=== PATIENT | male | born 1990 | race Caucasian/White ===

== ENCOUNTER 2017-01-20 20:41 | Emergency (ER) | payer MEDICAID ==
[~2017-01-20] VITALS: Ht 172.7 cm; Wt 75.0 kg
[2017-01-20 21:17] VITALS: BP 148/88
== END 2017-01-20 22:00 | disposition left against medical advice (07) ==
LOC: ER 20:42
DX: R00.0 Tachycardia, unspecified (principal); Z53.21 Procedure and treatment not carried out due to patient leaving prior to being seen by health care provider

== ENCOUNTER 2017-08-04 16:28 | Emergency (ER) | payer MEDICAID ==
[~2017-08-04] VITALS: Ht 172.7 cm; Wt 73.5 kg
[2017-08-04 17:00] VITALS: BP 125/82
== END 2017-08-04 17:20 | disposition home or self-care (01) ==
LOC: ER 16:28
DX: Z00.00 Encounter for general adult medical examination without abnormal findings (principal); F12.10 Cannabis abuse, uncomplicated; F14.10 Cocaine abuse, uncomplicated; F15.10 Other stimulant abuse, uncomplicated
CPT/HCPCS: 99281

== ENCOUNTER 2018-06-27 08:39 | Emergency (ER) | payer SELFPAY ==
[~2018-06-27] VITALS: Ht 172.7 cm; Wt 88.0 kg
[2018-06-27] MEDS ORDERED: SODIUM CHLORIDE 0.9% 1,000 ML IV ONE (09:04)
[2018-06-27] MEDS ORDERED: ONDANSETRON HCL 4MG/2ML INJ IV STA (09:04)
[2018-06-27] MEDS ORDERED: PANTOPRAZOLE SODIUM 40 MG/VIAL IV STA (09:04)
[2018-06-27] MEDS ORDERED: OCTREOTIDE ACETATE 50 MCG/ML 1ML IV ONE (09:15)
[2018-06-27] MEDS ORDERED: PANTOPRAZOLE 80 MG in SODIUM CHLORIDE 0.9% 80 ML IV ONE (09:15)
[2018-06-27] MEDS ORDERED: OCTREOTIDE 1,000 MCG in SODIUM CHLORIDE 0.9% 100 ML IV ONE ×2 (09:15→10:00)
[2018-06-27 09:53] LABS: HEMATOCRIT. 44.6 % (42.0-52.0); HEMOGLOBIN. 14.9 g/dL (14.0-18.0); MEAN CORPUSCULAR VOLUME 96.1 fL (80.0-94.0); MEAN PLATELET VOLUME 10.3 fl (7.4-10.4); PLATELET 183 x1000/uL (130-400); RED BLOOD CELL COUNT 4.64 mill/uL (4.7-6.1); RED CELL DISTRIBUTION WIDTH 13.1 % (11.6-14.6)
[2018-06-27 09:55] LABS: CHLORIDE 105 mEq/L (98-107)
[2018-06-27 09:59] LABS: INR 1.1; PROTHROMBIN TIME 11.1 sec (9.1-11.1)
[2018-06-27 10:00] LABS: ETHANOL BLOOD 46 mg/dL
[2018-06-27 10:33] LABS: PLATELET ESTIMATE NORMAL
[2018-06-27 12:22] VITALS: BP 127/78
[2018-06-27] MEDS ORDERED: ONDANSETRON HCL 4MG/2ML INJ IV PRN ×2 (12:45→13:30)
[2018-06-27 13:16] LABS: HEPATITIS B SURFACE ANTIGEN NEGATIVE
[2018-06-27 13:45] LABS: HEPATITIS A AB IGM NEGATIVE (NEGATIVE)
[2018-06-27] MEDS ORDERED: PANTOPRAZOLE SODIUM 40 MG/VIAL IV SCH ×2 (17:00)
== END 2018-06-27 14:00 | disposition left against medical advice (07) ==
LOC: ER 08:39 → EDBEDREQ 12:39 → CANRESERV 13:04 → ENRESERV 13:04 → ER 13:27 → CANBEDREQ 16:28
DX: K92.2 Gastrointestinal hemorrhage, unspecified (principal); F10.229 Alcohol dependence with intoxication, unspecified; R00.0 Tachycardia, unspecified; Y90.2 Blood alcohol level of 40-59 mg/100 ml; K76.0 Fatty (change of) liver, not elsewhere classified; F12.10 Cannabis abuse, uncomplicated; Z98.890 Other specified postprocedural states
CPT/HCPCS: 36415; 74176; 80053; 80307; 83690; 85025; 85610; 86850; 86900; 86901; 87186; 96361; 96365; 96366; 96368; 96375; 99284; C9113; J2354; J2405; J7030; J7050; 86705; 86709; 86803; 87340

== ENCOUNTER 2018-08-16 08:11 | Emergency (ER) | payer BC ==
[~2018-08-16] VITALS: Ht 175.3 cm; Wt 91.0 kg
[2018-08-16] MEDS ORDERED: SODIUM CHLORIDE 0.9% 1,000 ML IV ONE (08:33)
[2018-08-16] MEDS ORDERED: ONDANSETRON HCL 4MG/2ML INJ IV STA (08:33)
[2018-08-16] MEDS ORDERED: PANTOPRAZOLE SODIUM 40 MG/VIAL IV ONE (08:45)
[2018-08-16] MEDS ORDERED: ONDANSETRON HCL 4MG/2ML INJ IV ONE (08:45)
[2018-08-16] MEDS ORDERED: LORAZEPAM 2MG/ML CPJ IV ONE (08:45)
[2018-08-16 08:49] LABS: BASOPHILS % 1.3 % (0.0-2.0); EOSINOPHILS % 0.3 % (0.0-5.0); HEMATOCRIT. 52.3 % (42.0-52.0); HEMOGLOBIN. 18.1 g/dL (14.0-18.0); LYMPHOCYTES % 23.4 % (20.0-50.0); MEAN CORPUSCULAR HEMOGLOBIN 32.7 pg (28.0-32.0); MEAN CORPUSCULAR VOLUME 94.6 fL (80.0-94.0); MEAN PLATELET VOLUME 9.4 fl (7.4-10.4); MONOCYTES % 5.8 % (2.0-8.0); NEUTROPHILS % 69.2 % (40.0-76.0); PLATELET 251 x1000/uL (130-400); RED BLOOD CELL COUNT 5.53 mill/uL (4.7-6.1); RED CELL DISTRIBUTION WIDTH 13.5 % (11.6-14.6)
[2018-08-16 08:52] LABS: CHLORIDE 105 mEq/L (98-107)
[2018-08-16 08:53] LABS: INR 1.1; PROTHROMBIN TIME 11.2 sec (9.1-11.1)
[2018-08-16] MEDS ORDERED: METOCLOPRAMIDE HCL 10MG/2ML VIAL IV ONE (10:00)
[2018-08-16 10:58] LABS: CLARITY URINE CLEAR (CLEAR); COLOR URINE YELLOW (YELLOW); KETONES URINE TRACE (NEGATIVE); LEUKOCYTE ESTERASE URINE NEGATIVE (NEGATIVE); NITRITE URINE NEGATIVE (NEGATIVE); OCCULT BLOOD URINE NEGATIVE (NEGATIVE); PROTEIN URINE 1+ (NEGATIVE); SPECIFIC GRAVITY URINE 1.019 (1.005-1.030); UROBILINOGEN URINE 0.2 E.U./dL (0.2-1.0)
[2018-08-16 11:17] LABS: *AMPHETAMINES SCREEN URINE NEGATIVE (NEGATIVE); *BARBITURATES SCREEN URINE NEGATIVE (NEGATIVE); *BENZODIAZEPINES SCREEN URINE NEGATIVE (NEGATIVE); *COCAINE SCREEN URINE NEGATIVE (NEGATIVE)
[2018-08-16 11:18] LABS: CANNABINOID URINE SCREEN PRESUMTIVE POSITIVE (NEGATIVE); METHADONE URINE SCREEN NEGATIVE (NEGATIVE); OPIATES URINE SCREEN NEGATIVE (NEGATIVE); PHENCYCLIDINE URINE SCREEN NEGATIVE (NEGATIVE)
[2018-08-16 11:47] VITALS: BP 120/78
== END 2018-08-16 12:09 | disposition home or self-care (01) ==
LOC: ER 08:11
DX: R11.2 Nausea with vomiting, unspecified (principal); F12.10 Cannabis abuse, uncomplicated; F15.10 Other stimulant abuse, uncomplicated; F10.20 Alcohol dependence, uncomplicated; Y90.4 Blood alcohol level of 80-99 mg/100 ml; Z94.1 Heart transplant status
CPT/HCPCS: 36415; 71045; 80053; 80305; 80320; 81003; 83690; 85025; 85610; 96361; 96374; 96375; 96376; 99284; C9113; J2060; J2405; J2765; J7030; G0480

== ENCOUNTER 2020-01-13 11:14 | Emergency (ER) | payer BC, MEDICAID ==
[~2020-01-13] VITALS: Ht 172.7 cm; Wt 90.7 kg
[2020-01-13 12:15] LABS: BASOPHILS % 1.2 % (0.0-2.0); EOSINOPHILS % 0.1 % (0.0-5.0); HEMATOCRIT. 50.2 % (42.0-52.0); HEMOGLOBIN. 17.2 g/dL (14.0-18.0); LYMPHOCYTES % 12.8 % (20.0-50.0); MEAN CORPUSCULAR HEMOGLOBIN 33.2 pg (28.0-32.0); MEAN CORPUSCULAR VOLUME 96.8 fL (80.0-94.0); MEAN PLATELET VOLUME 9.5 fl (7.4-10.4); MONOCYTES % 5.7 % (2.0-8.0); NEUTROPHILS % 80.2 % (40.0-76.0); PLATELET 234 x1000/uL (130-400); RED BLOOD CELL COUNT 5.18 mill/uL (4.7-6.1); RED CELL DISTRIBUTION WIDTH 13.6 % (11.6-14.6)
[2020-01-13 12:20] LABS: CHLORIDE 104 mEq/L (98-107)
[2020-01-13 12:28] LABS: INR 1.1; PROTHROMBIN TIME 11.2 sec (9.6-11.0)
[2020-01-13] MEDS ORDERED: ONDANSETRON HCL 4MG/2ML INJ IV ONE (14:00)
[2020-01-13 14:35] VITALS: BP 141/84
== END 2020-01-13 14:45 | disposition home or self-care (01) ==
LOC: ER 11:14
DX: R11.2 Nausea with vomiting, unspecified (principal); F15.10 Other stimulant abuse, uncomplicated; F12.10 Cannabis abuse, uncomplicated; F17.290 Nicotine dependence, other tobacco product, uncomplicated; Z98.890 Other specified postprocedural states
CPT/HCPCS: 36415; 71045; 80053; 85025; 85610; 86850; 86900; 86901; 93005; 96374; 99285; 99406; J2405

== ENCOUNTER 2020-03-01 12:14 | Emergency (ER) | payer MEDICAID ==
[~2020-03-01] VITALS: Ht 172.7 cm; Wt 91.0 kg
[2020-03-01 12:18] VITALS: BP 146/85
== END 2020-03-01 12:52 | disposition home or self-care (01) ==
LOC: ER 12:14
DX: M54.6 Pain in thoracic spine (principal); F15.10 Other stimulant abuse, uncomplicated; F12.90 Cannabis use, unspecified, uncomplicated
CPT/HCPCS: 99282

== ENCOUNTER 2020-06-02 17:18 | Emergency (ER) | payer MEDICAID ==
[~2020-06-02] VITALS: Ht 172.7 cm; Wt 82.0 kg
[2020-06-02] MEDS ORDERED: KETOROLAC 60MG/2ML VIAL IM ONE (19:30)
[2020-06-02 20:13] VITALS: BP 135/78
== END 2020-06-02 21:37 | disposition home or self-care (01) ==
LOC: ER 17:18
DX: S42.022A Displaced fracture of shaft of left clavicle, initial encounter for closed fracture (principal); Y04.2XXA Assault by strike against or bumped into by another person, initial encounter; Y93.89 Activity, other specified; Y92.89 Other specified places as the place of occurrence of the external cause; F10.20 Alcohol dependence, uncomplicated; Y90.9 Presence of alcohol in blood, level not specified; F15.10 Other stimulant abuse, uncomplicated; R03.0 Elevated blood-pressure reading, without diagnosis of hypertension; F12.90 Cannabis use, unspecified, uncomplicated
CPT/HCPCS: 29105; 73030; 96372; 99283; J1885; A4565

== ENCOUNTER 2020-12-19 15:04 | Emergency (ER) | payer BC, OTHER ==
[~2020-12-19] VITALS: Ht 167.6 cm; Wt 80.0 kg
[2020-12-19] MEDS ORDERED: ONDANSETRON HCL 4MG/2ML INJ IV STA (17:42)
[2020-12-19] MEDS ORDERED: MORPHINE SULFATE 4 MG/ML CPJ (NOT FOR IM USE) IV STA (17:42)
[2020-12-19] MEDS ORDERED: SODIUM CHLORIDE 0.9% 1,000 ML IV ONE (17:45)
[2020-12-19] MEDS ORDERED: ONDANSETRON HCL 4MG/2ML INJ IV ONE (18:30)
[2020-12-19 19:44] LABS: HEMOGLOBIN. 17.9 g/dL (14.0-18.0); MEAN CORPUSCULAR HEMOGLOBIN 33.1 pg (28.0-32.0); MEAN CORPUSCULAR VOLUME 92.4 fL (80.0-94.0); MEAN PLATELET VOLUME 9.7 fl (7.4-10.4); PLATELET 227 x1000/uL (130-400); RED BLOOD CELL COUNT 5.41 mill/uL (4.7-6.1); RED CELL DISTRIBUTION WIDTH 13.8 % (11.6-14.6)
[2020-12-19] MEDS ORDERED: LORAZEPAM 2MG/ML CPJ IV ONE (19:45)
[2020-12-19 19:51] LABS: CHLORIDE 105 mEq/L (98-107)
[2020-12-19 19:53] LABS: INR 1.1; PROTHROMBIN TIME 11.7 sec (9.6-11.0)
[2020-12-19 19:56] LABS: ETHANOL BLOOD < 10 mg/dL
[2020-12-19 20:59] LABS: PLATELET ESTIMATE NORMAL
[2020-12-19] MEDS ORDERED: IOHEXOL-300 100 ML BOTTLE ONE (23:28)
[2020-12-19 23:43] LABS: CLARITY URINE CLEAR (CLEAR); COLOR URINE YELLOW (YELLOW); KETONES URINE 1+ (NEGATIVE); LEUKOCYTE ESTERASE URINE NEGATIVE (NEGATIVE); NITRITE URINE NEGATIVE (NEGATIVE); OCCULT BLOOD URINE NEGATIVE (NEGATIVE); PH URINE 6.5 (4.5-8.0); PROTEIN URINE TRACE (NEGATIVE); SPECIFIC GRAVITY URINE 1.073 (1.005-1.030)
[2020-12-20 00:09] LABS: *AMPHETAMINES SCREEN URINE NEGATIVE (NEGATIVE); *COCAINE SCREEN URINE NEGATIVE (NEGATIVE); CANNABINOID URINE SCREEN PRESUMTIVE POSITIVE (NEGATIVE); METHADONE URINE SCREEN NEGATIVE (NEGATIVE); OPIATES URINE SCREEN PRESUMTIVE POSITIVE (NEGATIVE); PHENCYCLIDINE URINE SCREEN NEGATIVE (NEGATIVE)
[2020-12-20 00:10] LABS: *BARBITURATES SCREEN URINE NEGATIVE (NEGATIVE); *BENZODIAZEPINES SCREEN URINE NEGATIVE (NEGATIVE)
[2020-12-20 05:00] VITALS: BP 127/81
== END 2020-12-20 05:28 | disposition short-term general hospital (02) ==
LOC: ER 15:04
DX: R11.10 Vomiting, unspecified (principal); R10.13 Epigastric pain; R19.7 Diarrhea, unspecified; R00.0 Tachycardia, unspecified; I45.10 Unspecified right bundle-branch block; F10.20 Alcohol dependence, uncomplicated; Y90.0 Blood alcohol level of less than 20 mg/100 ml; F15.10 Other stimulant abuse, uncomplicated; F12.90 Cannabis use, unspecified, uncomplicated
CPT/HCPCS: 36415; 71045; 74177; 80053; 80305; 80320; 81003; 83605; 83690; 84484; 85025; 85610; 93005; 96361; 96374; 96375; 96376; 99285; J2060; J2270; J2405; J7030; Q9967; G0480

== ENCOUNTER 2021-01-11 08:52 | Emergency (ER) | payer BC, OTHER ==
[~2021-01-11] VITALS: Ht 172.7 cm; Wt 95.0 kg
[2021-01-11] MEDS ORDERED: SODIUM CHLORIDE 0.9% 1,000 ML IV ONE (09:00)
[2021-01-11 09:59] LABS: HEMATOCRIT. 46.2 % (42.0-52.0); HEMOGLOBIN. 15.7 g/dL (14.0-18.0); MEAN CORPUSCULAR HEMOGLOBIN 32.7 pg (28.0-32.0); MEAN CORPUSCULAR VOLUME 96.2 fL (80.0-94.0); MEAN PLATELET VOLUME 9.4 fl (7.4-10.4); PLATELET 197 x1000/uL (130-400); RED CELL DISTRIBUTION WIDTH 14.2 % (11.6-14.6)
[2021-01-11 10:08] LABS: CHLORIDE 106 mEq/L (98-107)
[2021-01-11 10:14] LABS: ETHANOL BLOOD 88 mg/dL
[2021-01-11 12:23] LABS: *AMPHETAMINES SCREEN URINE NEGATIVE (NEGATIVE); *BENZODIAZEPINES SCREEN URINE NEGATIVE (NEGATIVE); *COCAINE SCREEN URINE NEGATIVE (NEGATIVE); METHADONE URINE SCREEN NEGATIVE (NEGATIVE); OPIATES URINE SCREEN NEGATIVE (NEGATIVE)
[2021-01-11 12:24] LABS: *BARBITURATES SCREEN URINE NEGATIVE (NEGATIVE); CANNABINOID URINE SCREEN PRESUMTIVE POSITIVE (NEGATIVE); PHENCYCLIDINE URINE SCREEN NEGATIVE (NEGATIVE)
[2021-01-11] MEDS ORDERED: POTASSIUM CHLORIDE 20MEQ TABLET SR PO ONE (12:45)
[2021-01-11 14:09] LABS: PLATELET ESTIMATE NORMAL
[2021-01-11 14:15] VITALS: BP 145/84
== END 2021-01-11 15:18 | disposition home or self-care (01) ==
LOC: ER 08:52
DX: R00.2 Palpitations (principal); F10.129 Alcohol abuse with intoxication, unspecified; E87.6 Hypokalemia; F19.10 Other psychoactive substance abuse, uncomplicated; F17.200 Nicotine dependence, unspecified, uncomplicated; F12.10 Cannabis abuse, uncomplicated; Z98.890 Other specified postprocedural states; Y90.4 Blood alcohol level of 80-99 mg/100 ml
CPT/HCPCS: 36415; 71045; 80053; 80305; 80320; 83880; 84443; 84484; 85025; 93005; 96360; 96361; 99285; J7030; Z7610; G0480

== ENCOUNTER 2021-03-14 08:00 | Emergency (ER) | payer OTHER ==
[~2021-03-14] VITALS: Ht 172.7 cm; Wt 85.0 kg
[2021-03-14] MEDS ORDERED: KETOROLAC 30MG/ML VIAL IV STA (08:19)
[2021-03-14] MEDS ORDERED: ONDANSETRON HCL 4MG/2ML INJ IV ONE (08:30)
[2021-03-14] MEDS ORDERED: SODIUM CHLORIDE 0.9% 1,000 ML IV ONE (08:30)
[2021-03-14 08:59] LABS: CHLORIDE 104 mEq/L (98-107)
[2021-03-14 09:03] LABS: ETHANOL BLOOD 74 mg/dL
[2021-03-14 09:10] LABS: BASOPHILS % 0.9 % (0.0-2.0); EOSINOPHILS % 0.5 % (0.0-5.0); HEMATOCRIT. 48.5 % (42.0-52.0); HEMOGLOBIN. 16.8 g/dL (14.0-18.0); MEAN CORPUSCULAR HEMOGLOBIN 33.4 pg (28.0-32.0); MEAN CORPUSCULAR VOLUME 96.4 fL (80.0-94.0); MEAN PLATELET VOLUME 9.1 fl (7.4-10.4); MONOCYTES % 6.3 % (2.0-8.0); NEUTROPHILS % 84.3 % (40.0-76.0); PLATELET 186 x1000/uL (130-400); RED BLOOD CELL COUNT 5.03 mill/uL (4.7-6.1); RED CELL DISTRIBUTION WIDTH 14.2 % (11.6-14.6)
[2021-03-14 10:40] LABS: *AMPHETAMINES SCREEN URINE NEGATIVE (NEGATIVE); *BARBITURATES SCREEN URINE NEGATIVE (NEGATIVE); *BENZODIAZEPINES SCREEN URINE NEGATIVE (NEGATIVE)
[2021-03-14 10:41] LABS: *COCAINE SCREEN URINE NEGATIVE (NEGATIVE); CANNABINOID URINE SCREEN PRESUMTIVE POSITIVE (NEGATIVE); METHADONE URINE SCREEN NEGATIVE (NEGATIVE); OPIATES URINE SCREEN NEGATIVE (NEGATIVE); PHENCYCLIDINE URINE SCREEN NEGATIVE (NEGATIVE)
[2021-03-14] MEDS ORDERED: OMEP20CA14 MT (10:48)
[2021-03-14 11:20] VITALS: BP 147/92
== END 2021-03-14 11:22 | disposition home or self-care (01) ==
LOC: ER 08:00
DX: T51.0X1A Toxic effect of ethanol, accidental (unintentional), initial encounter (principal); R07.89 Other chest pain; F10.229 Alcohol dependence with intoxication, unspecified; Y90.3 Blood alcohol level of 60-79 mg/100 ml; Z71.41 Alcohol abuse counseling and surveillance of alcoholic; I45.2 Bifascicular block; F12.90 Cannabis use, unspecified, uncomplicated; F15.10 Other stimulant abuse, uncomplicated; K21.9 Gastro-esophageal reflux disease without esophagitis; Y92.89 Other specified places as the place of occurrence of the external cause
CPT/HCPCS: 36415; 71045; 80053; 80305; 80320; 83880; 84484; 85025; 93005; 96374; 96375; 99285; J1885; J2405; J7030; G0480

== ENCOUNTER 2021-08-19 10:37 | Emergency (ER) | payer OTHER ==
[~2021-08-19] VITALS: Ht 172.7 cm; Wt 90.0 kg
[~2021-08-19 10:37] MED LIST: OMEP20CA14 MT
[2021-08-19 12:19] LABS: HEMATOCRIT. 49.5 % (42.0-52.0); HEMOGLOBIN. 17.4 g/dL (14.0-18.0); MEAN CORPUSCULAR HEMOGLOBIN 32.8 pg (28.0-32.0); MEAN CORPUSCULAR VOLUME 93.1 fL (80.0-94.0); PLATELET 230 x1000/uL (130-400); RED BLOOD CELL COUNT 5.32 mill/uL (4.7-6.1); RED CELL DISTRIBUTION WIDTH 13.5 % (11.6-14.6)
[2021-08-19 12:29] LABS: CHLORIDE 101 mEq/L (98-107)
[2021-08-19 12:33] LABS: ETHANOL BLOOD < 10 mg/dL
[2021-08-19 12:45] LABS: PLATELET ESTIMATE NORMAL
[2021-08-19] MEDS ORDERED: SODIUM CHLORIDE 0.9% 1,000 ML IV ONE (13:45)
[2021-08-19] MEDS ORDERED: ONDANSETRON HCL 4MG/2ML INJ IV ONE (13:45)
[2021-08-19] MEDS ORDERED: KETOROLAC 15MG/ML VIAL IV ONE (13:45)
[2021-08-19 16:11] VITALS: BP 141/97
[2021-08-19] MEDS ORDERED: IOHEXOL-300 100 ML BOTTLE ONE (16:32)
== END 2021-08-19 16:38 | disposition home or self-care (01) ==
LOC: ER 10:37
DX: R10.12 Left upper quadrant pain (principal); F15.10 Other stimulant abuse, uncomplicated; Z98.890 Other specified postprocedural states
CPT/HCPCS: 36415; 71045; 74177; 80053; 80320; 82962; 83690; 83880; 84484; 85025; 93005; 96361; 96374; 96375; 99285; J1885; J2405; J7030; Q9967; G0480

== ENCOUNTER 2022-08-25 12:07 | Emergency (ER) | payer OTHER ==
[~2022-08-25] VITALS: Ht 172.7 cm; Wt 82.0 kg
[2022-08-25] MEDS ORDERED: KETOROLAC 60MG/2ML VIAL IM ONE (15:00)
[2022-08-25] MEDS ORDERED: ONDANSETRON 4MG ODT PO STA (15:11)
[2022-08-25 15:14] LABS: CLARITY URINE CLEAR (CLEAR); COLOR URINE YELLOW (YELLOW); KETONES URINE TRACE (NEGATIVE); LEUKOCYTE ESTERASE URINE NEGATIVE (NEGATIVE); NITRITE URINE NEGATIVE (NEGATIVE); OCCULT BLOOD URINE TRACE (NEGATIVE); PH URINE 6.5 (4.5-8.0); PROTEIN URINE 2+ (NEGATIVE); SPECIFIC GRAVITY URINE 1.018 (1.005-1.030); UROBILINOGEN URINE 0.2 E.U./dL (0.2-1.0)
[2022-08-25 16:03] LABS: BASOPHILS % 0.7 % (0.0-2.0); EOSINOPHILS % 0.1 % (0.0-5.0); HEMATOCRIT. 49.4 % (42.0-52.0); HEMOGLOBIN. 16.8 g/dL (14.0-18.0); LYMPHOCYTES % 8.3 % (20.0-50.0); MEAN CORPUSCULAR HEMOGLOBIN 32.7 pg (28.0-32.0); MEAN CORPUSCULAR VOLUME 95.7 fL (80.0-94.0); MEAN PLATELET VOLUME 9.5 fl (7.4-10.4); MONOCYTES % 7.1 % (2.0-8.0); NEUTROPHILS % 83.8 % (40.0-76.0); PLATELET 153 x1000/uL (130-400); RED BLOOD CELL COUNT 5.16 mill/uL (4.7-6.1); RED CELL DISTRIBUTION WIDTH 14.1 % (11.6-14.6)
[2022-08-25 16:19] LABS: CHLORIDE 101 mEq/L (98-107)
[2022-08-25 16:27] LABS: ETHANOL BLOOD 86 mg/dL
[2022-08-25 16:36] VITALS: BP 137/94
[2022-08-25] MEDS ORDERED: HALOPERIDOL LACTATE 5MG/ML VIAL IM ONE (16:45)
[2022-08-25] MEDS ORDERED: ONDA4TAB50 MT (17:18)
[2022-08-25] MEDS ORDERED: IBUP-2028 MT (17:18)
[2022-08-25] MEDS ORDERED: LIDO1ADH62 TP (17:18)
== END 2022-08-25 17:56 | disposition home or self-care (01) ==
LOC: ER 12:07
DX: R10.9 Unspecified abdominal pain (principal); R11.2 Nausea with vomiting, unspecified
CPT/HCPCS: 36415; 71101; 80053; 80320; 81003; 83690; 85025; 96372; 99284; J1630; J1885; Q0162; Z7610; G0480

== ENCOUNTER 2023-01-15 06:42 | Emergency (ER) | payer OTHER ==
[~2023-01-15] VITALS: Ht 172.7 cm; Wt 73.0 kg
[~2023-01-15 06:42] MED LIST changes: +IBUP-2028 MT; +LIDO1ADH62 TP; +ONDA4TAB50 MT
[2023-01-15 06:48] VITALS: BP 127/81; PULSE 76; RESP 18; TEMP 98.9; O2SAT 97
[2023-01-15 07:50] LABS: BASOPHILS % 0.8 % (0.0-2.0); EOSINOPHILS % 0.5 % (0.0-5.0); HEMATOCRIT. 49.1 % (42.0-52.0); HEMOGLOBIN. 16.7 g/dL (14.0-18.0); LYMPHOCYTES % 7.9 % (20.0-50.0); MEAN CORPUSCULAR HEMOGLOBIN 32.2 pg (28.0-32.0); MEAN CORPUSCULAR HGB CONC 33.9 g/dL (31.0-37.0); MEAN CORPUSCULAR VOLUME 94.9 fL (80.0-94.0); MEAN PLATELET VOLUME 9.4 fl (7.4-10.4); MONOCYTES % 2.9 % (2.0-8.0); NEUTROPHILS % 87.9 % (40.0-76.0); PLATELET 220 x1000/uL (130-400); RED BLOOD CELL COUNT 5.18 mill/uL (4.7-6.1); RED CELL DISTRIBUTION WIDTH 13.8 % (11.6-14.6); WHITE BLOOD COUNT 12.7 x1000/uL (4.5-11.0)
[2023-01-15 07:58] LABS: CHLORIDE 111 mEq/L (98-107); INDEX HEMOLYSI 1 (1-3); INDEX ICTERIC 1 (1-4); INDEX LIPEMIC 1 (1-3); POTASSIUM 3.6 mEq/L (3.5-5.1); SODIUM 138 mEq/L (136-145)
[2023-01-15 08:06] LABS: ALANINE AMINOTRANSFERASE 61 IU/L (13-61); ALBUMIN 4.2 g/dL (3.4-5.0); ASPARTATE AMINOTRANSFERASE 153 IU/L (15-37); BILIRUBIN TOTAL 0.5 mg/dL (0.1-1.0); CALCIUM 8.9 mg/dL (8.5-10.1); CARBON DIOXIDE 23 mEq/L (21-32); CREATININE 0.6 mg/dL (0.6-1.3); GLUCOSE 91 mg/dL (70-105); UREA NITROGEN BLOOD 6 mg/dL (7-21)
[2023-01-15 08:30] LABS: PROTHROMBIN TIME 11.2 sec (9.6-11.0)
[2023-01-15] MEDS ORDERED: TOPUD PO (10:03)
[2023-01-15] MEDS ORDERED: ONDA4TAB50 PO (10:03)
== END 2023-01-15 11:28 | disposition home or self-care (01) ==
LOC: ER 06:48
DX: R10.9 Unspecified abdominal pain (principal); F15.10 Other stimulant abuse, uncomplicated; F10.229 Alcohol dependence with intoxication, unspecified; I20.9 Angina pectoris, unspecified; Y90.0 Blood alcohol level of less than 20 mg/100 ml
CPT/HCPCS: 36415; 74176; 80053; 85025; 93005; 99284

== ENCOUNTER 2023-08-03 02:01 | Emergency (ER) | payer MEDICAID, OTHER ==
[~2023-08-03] VITALS: Ht 172.7 cm; Wt 84.5 kg
[~2023-08-03 02:01] MED LIST changes: +ONDA4TAB50 PO; +TOPUD PO
[2023-08-03 02:28] VITALS: BP 133/85; PULSE 108; RESP 24; TEMP 98.3; O2SAT 98
[2023-08-03 03:02] LABS: CLARITY URINE CLEAR (CLEAR); COLOR URINE YELLOW (YELLOW); GLUCOSE URINE NEGATIVE (NEGATIVE); KETONES URINE TRACE (NEGATIVE); LEUKOCYTE ESTERASE URINE NEGATIVE (NEGATIVE); NITRITE URINE NEGATIVE (NEGATIVE); OCCULT BLOOD URINE TRACE (NEGATIVE); PH URINE 5.5 (4.5-8.0); PROTEIN URINE TRACE (NEGATIVE); UROBILINOGEN URINE 0.2 E.U./dL (0.2-1.0)
[2023-08-03 04:55] LABS: RBC URINE 0-2 /hpf (0-2); WBC URINE 0-2 /hpf (0-2)
[2023-08-03 04:56] LABS: SQUAMOUS EPITHELIAL CELL URINE FEW /lpf (RARE/1+)
[2023-08-03 05:00] LABS: BACTERIA URINE NONE SEEN
== END 2023-08-03 08:29 | disposition left against medical advice (07) ==
LOC: ER 02:28
DX: R07.89 Other chest pain (principal); R11.10 Vomiting, unspecified; Z53.21 Procedure and treatment not carried out due to patient leaving prior to being seen by health care provider
CPT/HCPCS: 81003; 93005; 99281

== ENCOUNTER 2023-09-01 16:01 | Emergency (ER) | payer MEDICAID ==
[~2023-09-01] VITALS: Ht 172.7 cm; Wt 82.0 kg
[2023-09-01 16:03] VITALS: O2SAT 96
[2023-09-01] MEDS ORDERED: IBUP-2028 MT (16:26)
[2023-09-01] MEDS ORDERED: BO1 TP (16:26)
[2023-09-01] MEDS ORDERED: LIDO700A15 TP (17:02)
[2023-09-01 17:19] VITALS: BP 118/69; PULSE 67; RESP 18; TEMP 98.2
== END 2023-09-01 17:19 | disposition home or self-care (01) ==
LOC: ER 16:01
DX: S00.83XA Contusion of other part of head, initial encounter (principal); Z79.899 Other long term (current) drug therapy; W18.30XA Fall on same level, unspecified, initial encounter; Y93.89 Activity, other specified; Y92.89 Other specified places as the place of occurrence of the external cause; Y99.8 Other external cause status
CPT/HCPCS: 71101; 99283

== ENCOUNTER 2023-09-22 06:42 | Emergency (ER) | payer MEDICAID, OTHER ==
[~2023-09-22] VITALS: Ht 172.7 cm; Wt 88.0 kg
[~2023-09-22 06:42] MED LIST changes: +BO1 TP; +LIDO700A15 TP
[2023-09-22 07:07] VITALS: O2SAT 96
[2023-09-22] MEDS: SODIUM CHLORIDE 0.9% 1,000 ML IV ONE (09:30)
[2023-09-22 09:47] LABS: BASOPHILS % 0.9 % (0.0-2.0); EOSINOPHILS % 0.7 % (0.0-5.0); HEMATOCRIT. 50.4 % (42.0-52.0); HEMOGLOBIN. 17.1 g/dL (14.0-18.0); LYMPHOCYTES % 16.6 % (20.0-50.0); MEAN CORPUSCULAR HEMOGLOBIN 32.2 pg (28.0-32.0); MEAN CORPUSCULAR HGB CONC 33.9 g/dL (31.0-37.0); MEAN CORPUSCULAR VOLUME 95.1 fL (80.0-94.0); MONOCYTES % 6.6 % (2.0-8.0); NEUTROPHILS % 75.2 % (40.0-76.0); PLATELET 226 x1000/uL (130-400); RED CELL DISTRIBUTION WIDTH 13.2 % (11.6-14.6); WHITE BLOOD COUNT 16.4 x1000/uL (4.5-11.0)
[2023-09-22 09:55] LABS: CHLORIDE 102 mEq/L (98-107); POTASSIUM 3.6 mEq/L (3.5-5.1); SODIUM 136 mEq/L (136-145)
[2023-09-22 09:56] LABS: CARBON DIOXIDE 20 mEq/L (21-32)
[2023-09-22 10:01] LABS: CREATININE 0.8 mg/dL (0.6-1.3); GLUCOSE 102 mg/dL (70-105)
[2023-09-22 10:03] LABS: ALANINE AMINOTRANSFERASE 30 IU/L (10-49); ALBUMIN 4.7 g/dL (3.2-4.8); ASPARTATE AMINOTRANSFERASE 47 IU/L (<34)
[2023-09-22 10:04] LABS: BILIRUBIN DIRECT 0.4 mg/dL (<=3.0); BILIRUBIN TOTAL 1.1 mg/dL (0.1-1.0); PROTEIN TOTAL 7.5 g/dL (6.0-8.3)
[2023-09-22 10:17] LABS: UREA NITROGEN BLOOD < 5 mg/dL (9-23)
[2023-09-22 10:25] LABS: CALCIUM 10.3 mg/dL (8.7-10.4)
[2023-09-22 10:50] VITALS: TEMP 98.2
[2023-09-22] MEDS: ONDANSETRON HCL 4MG/2ML INJ IV STA (11:03)
[2023-09-22 11:04] VITALS: BP 130/83; PULSE 80; RESP 20
[2023-09-22] MEDS: PANTOPRAZOLE SODIUM 40 MG/VIAL IV STA (11:04)
[2023-09-22] MEDS: MORPHINE SULFATE 4 MG/ML INJ (FOR IV/IM USE) IV STA (11:04)
[2023-09-22] MEDS ORDERED: ONDA4TAB50 MT (12:41)
[2023-09-22] MEDS ORDERED: FAMO-135 MT (12:41)
== END 2023-09-22 16:36 | disposition home or self-care (01) ==
LOC: ER 06:42
DX: F10.229 Alcohol dependence with intoxication, unspecified (principal); K29.20 Alcoholic gastritis without bleeding; F15.10 Other stimulant abuse, uncomplicated; Y90.0 Blood alcohol level of less than 20 mg/100 ml
CPT/HCPCS: 80076; 80048; 83690; 85025; 36415; 96361; 96374; 96375; 99284; J2405; C9113; J2270; J7030; Z7610 ×3

== ENCOUNTER 2023-10-14 12:24 | Emergency (ER) | payer MEDICAID, OTHER ==
[~2023-10-14] VITALS: Ht 167.6 cm; Wt 64.0 kg
[~2023-10-14 12:24] MED LIST changes: +FAMO-135 MT
[2023-10-14 12:32] VITALS: O2SAT 97
[2023-10-14] MEDS ORDERED: PANTOPRAZOLE 80 MG in SODIUM CHLORIDE 0.9% 100 ML IV SCH (13:00)
[2023-10-14] MEDS: PANTOPRAZOLE SODIUM 40 MG/VIAL IV ONE (13:06)
[2023-10-14] MEDS: METOCLOPRAMIDE HCL 10MG/2ML VIAL IV ONE (13:07)
[2023-10-14] MEDS: PANTOPRAZOLE 80 MG in SODIUM CHLORIDE 0.9% 100 ML IV ONE (13:30)
[2023-10-14] MEDS: LACTATED RINGERS 1,000 ML IV SCH (13:49)
[2023-10-14 13:51] LABS: BASOPHILS % 0.1 % (0.0-2.0); EOSINOPHILS % 0.7 % (0.0-5.0); HEMATOCRIT. 48.8 % (42.0-52.0); HEMOGLOBIN. 16.8 g/dL (14.0-18.0); LYMPHOCYTES % 30.7 % (20.0-50.0); MEAN CORPUSCULAR HEMOGLOBIN 33.2 pg (28.0-32.0); MEAN CORPUSCULAR HGB CONC 34.4 g/dL (31.0-37.0); MEAN CORPUSCULAR VOLUME 96.6 fL (80.0-94.0); MEAN PLATELET VOLUME 9.7 fl (7.4-10.4); MONOCYTES % 8.3 % (2.0-8.0); NEUTROPHILS % 60.2 % (40.0-76.0); PLATELET 256 x1000/uL (130-400); RED BLOOD CELL COUNT 5.05 mill/uL (4.7-6.1); RED CELL DISTRIBUTION WIDTH 13.8 % (11.6-14.6); WHITE BLOOD COUNT 8.4 x1000/uL (4.5-11.0)
[2023-10-14 14:00] LABS: PROTHROMBIN TIME 11.4 sec (9.6-11.0)
[2023-10-14 14:03] LABS: CHLORIDE 104 mEq/L (98-107); POTASSIUM 3.4 mEq/L (3.5-5.1); SODIUM 139 mEq/L (136-145)
[2023-10-14 14:04] LABS: CARBON DIOXIDE 23 mEq/L (21-32)
[2023-10-14 14:05] LABS: CALCIUM 9.8 mg/dL (8.7-10.4)
[2023-10-14 14:09] LABS: CREATININE 0.9 mg/dL (0.6-1.3)
[2023-10-14 14:10] LABS: GLUCOSE 86 mg/dL (70-105); TROPONIN I HIGH SENSITIVITY < 4 ng/L (3.0-53); UREA NITROGEN BLOOD < 5 mg/dL (9-23)
[2023-10-14 14:11] LABS: ALANINE AMINOTRANSFERASE 40 IU/L (10-49); ALBUMIN 5.3 g/dL (3.2-4.8); ASPARTATE AMINOTRANSFERASE 48 IU/L (<34); TROPONIN I HIGH SENSITIVITY < 4 ng/L (3.0-53)
[2023-10-14 14:12] LABS: BILIRUBIN DIRECT 0.3 mg/dL (<=3.0); PROTEIN TOTAL 8.2 g/dL (6.0-8.3)
[2023-10-14] MEDS: DIAZEPAM 5 MG/ML 2ML SYR IV ONE (14:37)
[2023-10-14 15:17] VITALS: BP 113/91; PULSE 98; RESP 20; TEMP 98.4
== END 2023-10-14 16:55 | disposition left against medical advice (07) ==
LOC: ER 15:07 → EDBEDREQ 16:30 → EDBEDREQTM 16:30 → ER 16:55 → CANBEDREQ 19:08
DX: R11.10 Vomiting, unspecified (principal); F10.239 Alcohol dependence with withdrawal, unspecified; F15.10 Other stimulant abuse, uncomplicated; Y90.9 Presence of alcohol in blood, level not specified
CPT/HCPCS: 80076; 80048; 85025; 85610; 86850; 86900; 86901; 84484; 36415; 71045; 93005; 96365; 96375; 99291; J3360; J2765; C9113; J7050; Z7610 ×2

== ENCOUNTER 2024-01-19 23:31 | Emergency (ER) | payer MEDICAID ==
[2024-01-20 00:08] VITALS: PULSE 96; RESP 20; O2SAT 98
[2024-01-20] MEDS ORDERED: ONDANSETRON HCL 4MG/2ML INJ IV STA (06:35)
[2024-01-20] MEDS ORDERED: PANTOPRAZOLE SODIUM 40 MG/VIAL IV STA (06:35)
[2024-01-20] MEDS ORDERED: SODIUM CHLORIDE 0.9% 1,000 ML IV ONE (06:45)
== END 2024-01-20 03:04 | disposition left against medical advice (07) ==
LOC: ER 23:31
DX: R10.13 Epigastric pain (principal); R11.2 Nausea with vomiting, unspecified; F10.20 Alcohol dependence, uncomplicated; Z98.890 Other specified postprocedural states; Z79.899 Other long term (current) drug therapy
CPT/HCPCS: 99281; J7030

== ENCOUNTER 2024-02-22 05:49 | Emergency (ER) | payer MEDICAID ==
[~2024-02-22] VITALS: Ht 175.3 cm; Wt 72.0 kg
[2024-02-22 05:53] VITALS: O2SAT 96
[2024-02-22 06:32] LABS: HEMATOCRIT. 48.7 % (42.0-52.0); MEAN CORPUSCULAR HEMOGLOBIN 31.5 pg (28.0-32.0); MEAN CORPUSCULAR VOLUME 95.5 fL (80.0-94.0); MEAN PLATELET VOLUME 8.8 fl (7.4-10.4); PLATELET 217 x1000/uL (130-400); RED CELL DISTRIBUTION WIDTH 13.7 % (11.6-14.6); WHITE BLOOD COUNT 11.1 x1000/uL (4.5-11.0)
[2024-02-22 06:33] LABS: DIFFERENTIAL COMMENT 1
[2024-02-22 06:36] LABS: CHLORIDE 106 mEq/L (98-107); POTASSIUM 3.2 mEq/L (3.5-5.1); SODIUM 139 mEq/L (136-145)
[2024-02-22 06:37] LABS: CARBON DIOXIDE 23 mEq/L (21-32)
[2024-02-22 06:38] LABS: CALCIUM 9.4 mg/dL (8.7-10.4)
[2024-02-22] MEDS: SODIUM CHLORIDE 0.9% 1,000 ML IV NR (06:39)
[2024-02-22 06:42] LABS: CREATININE 0.8 mg/dL (0.6-1.3); GLUCOSE 114 mg/dL (70-105)
[2024-02-22 06:44] LABS: ALANINE AMINOTRANSFERASE 48 IU/L (10-49); ALBUMIN 4.4 g/dL (3.2-4.8); ASPARTATE AMINOTRANSFERASE 52 IU/L (<34)
[2024-02-22 06:45] LABS: BILIRUBIN DIRECT 0.2 mg/dL (<=3.0); BILIRUBIN TOTAL 0.9 mg/dL (0.1-1.0); PROTEIN TOTAL 7.1 g/dL (6.0-8.3)
[2024-02-22] MEDS: CEFTRIAXONE 1GM/50ML 50 ML IV NR (06:58)
[2024-02-22] MEDS: DIAZEPAM 5 MG/ML 2ML SYR IV NR (06:58)
[2024-02-22 06:59] LABS: TROPONIN I HIGH SENSITIVITY < 4 ng/L (3.0-53); UREA NITROGEN BLOOD < 5 mg/dL (9-23)
[2024-02-22] MEDS: OCTREOTIDE ACETATE 50 MCG/ML 1ML SUBCUT NR (07:06)
[2024-02-22] MEDS ORDERED: CALCIUM CHLORIDE 1GM/10ML SYR IV NR (07:30)
[2024-02-22 08:07] VITALS: BP 108/69; PULSE 73; RESP 16; TEMP 36.89184; O2SAT 99
[2024-02-22] MEDS ORDERED: PANTOPRAZOLE SODIUM 40 MG/VIAL IV ONE (08:45)
[2024-02-22 10:17] LABS: PLATELET ESTIMATE NORMAL
== END 2024-02-22 08:04 | disposition left against medical advice (07) ==
LOC: ER 06:05 → EDBEDREQ 07:26 → EDBEDREQTM 07:26 → ER 08:04
DX: K92.0 Hematemesis (principal); F10.239 Alcohol dependence with withdrawal, unspecified; I51.9 Heart disease, unspecified; Z79.899 Other long term (current) drug therapy; Z98.890 Other specified postprocedural states; Y90.9 Presence of alcohol in blood, level not specified
CPT/HCPCS: 80076; 80048; 83880; 83690; 85025; 85610; 85730; 84484; 36415; 71045; 93005; 96365; 96372; 96375; 99291; J2354; J0696; J3360; Z7610 ×2

== ENCOUNTER 2024-02-29 07:00 | Emergency (ER) | payer MEDICAID ==
[~2024-02-29] VITALS: Ht 172.7 cm; Wt 66.9 kg
[2024-02-29 07:02] VITALS: PULSE 114; O2SAT 98
[2024-02-29 07:17] VITALS: BP 139/95; RESP 18; TEMP 98.3; O2SAT 97
[2024-02-29] MEDS: PANTOPRAZOLE SODIUM 40 MG/VIAL IV STA (07:28)
[2024-02-29] MEDS: ONDANSETRON HCL 4MG/2ML INJ IV STA (07:28)
[2024-02-29 07:59] LABS: CARBON DIOXIDE 24 mEq/L (21-32); CHLORIDE 108 mEq/L (98-107); POTASSIUM 3.5 mEq/L (3.5-5.1); SODIUM 142 mEq/L (136-145)
[2024-02-29 08:00] LABS: CALCIUM 9.7 mg/dL (8.7-10.4)
[2024-02-29 08:02] LABS: HEMATOCRIT. 46.4 % (42.0-52.0); HEMOGLOBIN. 15.9 g/dL (14.0-18.0); MEAN CORPUSCULAR HEMOGLOBIN 32.9 pg (28.0-32.0); MEAN CORPUSCULAR HGB CONC 34.3 g/dL (31.0-37.0); MEAN PLATELET VOLUME 8.9 fl (7.4-10.4); PLATELET 160 x1000/uL (130-400); PROTHROMBIN TIME 10.9 sec (9.6-11.0); RED BLOOD CELL COUNT 4.83 mill/uL (4.7-6.1); RED CELL DISTRIBUTION WIDTH 13.8 % (11.6-14.6); WHITE BLOOD COUNT 5.2 x1000/uL (4.5-11.0)
[2024-02-29 08:04] LABS: CREATININE 0.7 mg/dL (0.6-1.3); DIFFERENTIAL COMMENT 1
[2024-02-29 08:05] LABS: ETHANOL BLOOD 142 mg/dL (<10); GLUCOSE 88 mg/dL (70-105); UREA NITROGEN BLOOD 5 mg/dL (9-23)
[2024-02-29 08:06] LABS: ALANINE AMINOTRANSFERASE 56 IU/L (10-49); ALBUMIN 4.6 g/dL (3.2-4.8); ASPARTATE AMINOTRANSFERASE 102 IU/L (<34)
[2024-02-29 08:07] LABS: BILIRUBIN DIRECT 0.2 mg/dL (<=3.0); BILIRUBIN TOTAL 0.7 mg/dL (0.1-1.0); PROTEIN TOTAL 7.5 g/dL (6.0-8.3)
[2024-02-29] MEDS: SODIUM CHLORIDE 0.9% 1,000 ML IV ONE (08:34)
[2024-02-29 12:24] LABS: PLATELET ESTIMATE NORMAL
== END 2024-02-29 09:40 | disposition home or self-care (01) ==
LOC: ER 07:00
DX: F10.129 Alcohol abuse with intoxication, unspecified (principal); K29.20 Alcoholic gastritis without bleeding; Z98.890 Other specified postprocedural states; Z79.899 Other long term (current) drug therapy; Y90.6 Blood alcohol level of 120-199 mg/100 ml
CPT/HCPCS: 80076; 80048; 80320; 83690; 85025; 85610; 86850; 86900; 86901; 36415; 96361; 96374; 96375; 99284; J2405; J2470; J7030; Z7610 ×2; G0480

== ENCOUNTER 2024-05-19 00:52 | Emergency (ER) | payer MEDICAID ==
[~2024-05-19] VITALS: Ht 172.7 cm; Wt 68.3 kg
[2024-05-19 00:58] VITALS: O2SAT 98
[2024-05-19 01:26] VITALS: BP 108/81; PULSE 107; RESP 22; TEMP 98.6; O2SAT 98
[2024-05-19] MEDS: FAMOTIDINE 20MG/2ML VIAL IV STA (02:17)
[2024-05-19] MEDS: MAGNESIUM 2 G PREMIX 50 ML IV ONE (02:30)
[2024-05-19] MEDS ORDERED: FOLIC ACID 1 MG, THIAMINE HCL 100 MG, MVI, ADULT NO.1 10 ML in DEXTROSE 5% WATER 1,000 ML IV ONE (02:30)
[2024-05-19] MEDS: ONDANSETRON HCL 4MG/2ML INJ IV ONE (03:45)
[2024-05-19] MEDS: LORAZEPAM 2MG/ML INJ IV ONE (03:45)
[2024-05-19 04:46] LABS: *AMPHETAMINES SCREEN URINE NEGATIVE (NEGATIVE); *BARBITURATES SCREEN URINE NEGATIVE (NEGATIVE); *BENZODIAZEPINES SCREEN URINE NEGATIVE (NEGATIVE); *COCAINE SCREEN URINE NEGATIVE (NEGATIVE); METHADONE URINE SCREEN NEGATIVE (NEGATIVE); OPIATES URINE SCREEN NEGATIVE (NEGATIVE)
[2024-05-19 04:47] LABS: CANNABINOID URINE SCREEN PRESUMPTIVE POSITIVE (NEGATIVE); ECSTASY MDMA SCREEN URINE NEGATIVE (NEGATIVE); PHENCYCLIDINE URINE SCREEN NEGATIVE (NEGATIVE)
[2024-05-19 05:19] LABS: BASOPHILS % 0.8 % (0.0-2.0); EOSINOPHILS % 0.2 % (0.0-5.0); HEMATOCRIT. 43.9 % (42.0-52.0); LYMPHOCYTES % 8.4 % (20.0-50.0); MEAN CORPUSCULAR HEMOGLOBIN 33.3 pg (28.0-32.0); MEAN CORPUSCULAR HGB CONC 34.1 g/dL (31.0-37.0); MEAN CORPUSCULAR VOLUME 97.7 fL (80.0-94.0); MEAN PLATELET VOLUME 8.6 fl (7.4-10.4); MONOCYTES % 7.9 % (2.0-8.0); NEUTROPHILS % 82.7 % (40.0-76.0); PLATELET 133 x1000/uL (130-400); RED BLOOD CELL COUNT 4.49 mill/uL (4.7-6.1); RED CELL DISTRIBUTION WIDTH 13.9 % (11.6-14.6); WHITE BLOOD COUNT 8.8 x1000/uL (4.5-11.0)
[2024-05-19 05:23] LABS: CHLORIDE 104 mEq/L (98-107); POTASSIUM 3.6 mEq/L (3.5-5.1); SODIUM 140 mEq/L (136-145)
[2024-05-19 05:24] LABS: CARBON DIOXIDE 25 mEq/L (21-32)
[2024-05-19 05:29] LABS: CREATININE 0.6 mg/dL (0.6-1.3); GLUCOSE 83 mg/dL (70-105); UREA NITROGEN BLOOD 7 mg/dL (9-23)
[2024-05-19 05:30] LABS: ETHANOL BLOOD 32 mg/dL (<10)
[2024-05-19 05:31] LABS: ALANINE AMINOTRANSFERASE 26 IU/L (10-49); ALBUMIN 4.3 g/dL (3.2-4.8); ASPARTATE AMINOTRANSFERASE 47 IU/L (<34); BILIRUBIN DIRECT 0.3 mg/dL (<=3.0); LACTIC ACID 2.4 mmol/L (0.4-2.0)
[2024-05-19 05:32] LABS: BILIRUBIN TOTAL 0.8 mg/dL (0.1-1.0); PROTEIN TOTAL 7.1 g/dL (6.0-8.3)
== END 2024-05-19 07:15 | disposition left against medical advice (07) ==
LOC: ER 00:52 → EDBEDREQ 02:52 → ER 07:15
DX: F10.939 Alcohol use, unspecified with withdrawal, unspecified (principal); R00.0 Tachycardia, unspecified; Z79.899 Other long term (current) drug therapy; Y90.1 Blood alcohol level of 20-39 mg/100 ml
CPT/HCPCS: 80076; 80305; 80048; 83605; 83690; 85025; 36415; 96374; 96375; 99291; G0480; J3490; J2060; J3475; J2405; Z7610 ×3; 80320; J3411; J7070

== ENCOUNTER 2024-05-29 07:45 | Emergency (ER) | payer MEDICAID ==
[2024-05-29 07:46] VITALS: PULSE 111; O2SAT 98
== END 2024-05-29 08:27 | disposition left against medical advice (07) ==
LOC: ER 07:45
DX: Z00.00 Encounter for general adult medical examination without abnormal findings (principal); Z53.21 Procedure and treatment not carried out due to patient leaving prior to being seen by health care provider

== ENCOUNTER 2024-05-29 12:22 | Emergency (ER) | payer MEDICAID ==
[~2024-05-29] VITALS: Ht 170.2 cm; Wt 61.0 kg
[2024-05-29 12:26] VITALS: BP 151/94; PULSE 127; RESP 18; TEMP 98.6; O2SAT 94
[2024-05-29] MEDS ORDERED: ACETAMINOPHEN 325MG TABLET PO STA (12:34)
[2024-05-29] MEDS ORDERED: ONDANSETRON 4MG ODT PO STA (12:34)
[2024-05-29] MEDS ORDERED: LORAZEPAM 2MG/ML INJ IV ONE (13:45)
[2024-05-29] MEDS ORDERED: FOLIC ACID 1 MG, THIAMINE HCL 100 MG, MVI, ADULT NO.1 10 ML in DEXTROSE 5% WATER 1,000 ML IV ONE (13:45)
[2024-05-29 13:49] LABS: BASOPHILS % 1.2 % (0.0-2.0); EOSINOPHILS % 0.3 % (0.0-5.0); HEMATOCRIT. 36.8 % (42.0-52.0); HEMOGLOBIN. 12.6 g/dL (14.0-18.0); LYMPHOCYTES % 14.7 % (20.0-50.0); MEAN CORPUSCULAR HEMOGLOBIN 33.9 pg (28.0-32.0); MEAN CORPUSCULAR HGB CONC 34.2 g/dL (31.0-37.0); MEAN PLATELET VOLUME 9.7 fl (7.4-10.4); MONOCYTES % 11.5 % (2.0-8.0); NEUTROPHILS % 72.3 % (40.0-76.0); PLATELET 123 x1000/uL (130-400); RED BLOOD CELL COUNT 3.72 mill/uL (4.7-6.1); RED CELL DISTRIBUTION WIDTH 13.9 % (11.6-14.6); WHITE BLOOD COUNT 6.8 x1000/uL (4.5-11.0)
[2024-05-29 13:56] LABS: CHLORIDE 102 mEq/L (98-107); POTASSIUM 3.3 mEq/L (3.5-5.1); SODIUM 138 mEq/L (136-145)
[2024-05-29 13:59] LABS: CALCIUM 9.5 mg/dL (8.7-10.4); CARBON DIOXIDE 25 mEq/L (21-32)
[2024-05-29 14:04] LABS: CREATININE 0.7 mg/dL (0.6-1.3); GLUCOSE 98 mg/dL (70-105); UREA NITROGEN BLOOD 8 mg/dL (9-23)
[2024-05-29 14:05] LABS: ETHANOL BLOOD 35 mg/dL (<10)
[2024-05-29 14:06] LABS: ALANINE AMINOTRANSFERASE 43 IU/L (10-49); ASPARTATE AMINOTRANSFERASE 98 IU/L (<34); BILIRUBIN DIRECT 0.3 mg/dL (<=3.0); BILIRUBIN TOTAL 0.8 mg/dL (0.1-1.0); PROTEIN TOTAL 6.7 g/dL (6.0-8.3)
[2024-05-29] MEDS: ONDANSETRON 4MG ODT PO NR (14:31)
[2024-05-29] MEDS: LORAZEPAM 2MG/ML INJ IV NR (14:31)
[2024-05-29] MEDS ORDERED: ACETAMINOPHEN 325MG TABLET PO NR (20:00)
== END 2024-05-29 20:51 | disposition home or self-care (01) ==
LOC: ER 12:22
DX: K29.20 Alcoholic gastritis without bleeding (principal); S00.83XA Contusion of other part of head, initial encounter; F32.A Depression, unspecified; Z79.899 Other long term (current) drug therapy; Z98.890 Other specified postprocedural states; Y04.0XXA Assault by unarmed brawl or fight, initial encounter; Y93.89 Activity, other specified; Y92.89 Other specified places as the place of occurrence of the external cause; Y99.8 Other external cause status; Y90.1 Blood alcohol level of 20-39 mg/100 ml
CPT/HCPCS: 80076; 80048; 80320; 85025; 36415; 71045; 70450; 70486; 72125; 96374; 99285; Q0162; J3490 ×2; J2060; J3411; J7070; Z7610 ×4; G0480

== ENCOUNTER 2024-06-15 00:53 | Emergency (ER) | payer MEDICAID ==
[~2024-06-15] VITALS: Ht 172.7 cm; Wt 73.0 kg
[2024-06-15 00:55] VITALS: O2SAT 100
[2024-06-15 00:58] VITALS: BP 143/90; PULSE 92; RESP 20; TEMP 98.1; O2SAT 99
[2024-06-15] MEDS: ONDANSETRON 4MG ODT PO STA (01:05)
[2024-06-15] MEDS: MAGNESIUM/ALUMINUM HYDROXIDE/SIMETHICONE 30ML UDC PO STA (01:05)
[2024-06-15 01:55] LABS: CHLORIDE 107 mEq/L (98-107); POTASSIUM 3.8 mEq/L (3.5-5.1); SODIUM 143 mEq/L (136-145)
[2024-06-15 01:56] LABS: CALCIUM 9.3 mg/dL (8.7-10.4); CARBON DIOXIDE 27 mEq/L (21-32)
[2024-06-15 01:58] LABS: BASOPHILS % 0.3 % (0.0-2.0); EOSINOPHILS % 1.5 % (0.0-5.0); HEMATOCRIT. 43.9 % (42.0-52.0); HEMOGLOBIN. 14.8 g/dL (14.0-18.0); LYMPHOCYTES % 32.1 % (20.0-50.0); MEAN CORPUSCULAR HEMOGLOBIN 33.8 pg (28.0-32.0); MEAN CORPUSCULAR HGB CONC 33.9 g/dL (31.0-37.0); MEAN CORPUSCULAR VOLUME 99.9 fL (80.0-94.0); MEAN PLATELET VOLUME 8.8 fl (7.4-10.4); MONOCYTES % 9.7 % (2.0-8.0); NEUTROPHILS % 56.4 % (40.0-76.0); PLATELET 262 x1000/uL (130-400); RED BLOOD CELL COUNT 4.39 mill/uL (4.7-6.1); RED CELL DISTRIBUTION WIDTH 14.5 % (11.6-14.6); WHITE BLOOD COUNT 3.9 x1000/uL (4.5-11.0)
[2024-06-15 02:01] LABS: CREATININE 0.8 mg/dL (0.6-1.3); ETHANOL BLOOD 248 mg/dL (<10); GLUCOSE 99 mg/dL (70-105)
[2024-06-15 02:37] LABS: UREA NITROGEN BLOOD < 5 mg/dL (9-23)
[2024-06-15 03:09] LABS: ALANINE AMINOTRANSFERASE 18 IU/L (10-49); ALBUMIN 4.5 g/dL (3.2-4.8); ASPARTATE AMINOTRANSFERASE 39 IU/L (<34); BILIRUBIN DIRECT 0.1 mg/dL (<=3.0); BILIRUBIN TOTAL 0.4 mg/dL (0.1-1.0); PROTEIN TOTAL 7.4 g/dL (6.0-8.3)
== END 2024-06-15 03:56 | disposition home or self-care (01) ==
LOC: ER 00:58
DX: F10.129 Alcohol abuse with intoxication, unspecified (principal); R11.2 Nausea with vomiting, unspecified; Z98.890 Other specified postprocedural states; Z79.899 Other long term (current) drug therapy; Y90.8 Blood alcohol level of 240 mg/100 ml or more
CPT/HCPCS: 80076; 80048; 80320; 85025; 36415; 99283; Q0162; G0480

== ENCOUNTER 2024-06-15 05:04 | Emergency (ER) | payer MEDICAID ==
[~2024-06-15] VITALS: Ht 172.7 cm; Wt 73.0 kg
[2024-06-15 05:09] VITALS: O2SAT 95
[2024-06-15 05:19] VITALS: BP 151/90; PULSE 107; RESP 20; TEMP 98.5; O2SAT 100
== END 2024-06-15 05:58 | disposition left against medical advice (07) ==
LOC: ER 05:04
DX: R10.9 Unspecified abdominal pain (principal); Z53.21 Procedure and treatment not carried out due to patient leaving prior to being seen by health care provider

== ENCOUNTER 2024-07-08 06:02 | Emergency (ER) | payer MEDICAID ==
[~2024-07-08] VITALS: Ht 172.7 cm; Wt 73.0 kg
[2024-07-08 06:04] VITALS: O2SAT 98
[2024-07-08 06:11] VITALS: BP 137/81; PULSE 104; RESP 20; TEMP 36.8; O2SAT 100
== END 2024-07-08 06:37 | disposition left against medical advice (07) ==
LOC: ER 06:02
DX: F10.239 Alcohol dependence with withdrawal, unspecified (principal); Z53.21 Procedure and treatment not carried out due to patient leaving prior to being seen by health care provider

== ENCOUNTER 2024-09-12 03:15 | Inpatient (IN) | payer MEDICAID ==
[2024-09-12] VITALS (8 sets, daily range): BP systolic 117–139; BP diastolic 69–90; PULSE 71–98; RESP 15–24; TEMP 36.7–37.3; O2SAT 94–100
[~2024-09-12] VITALS: Ht 172.7 cm; Wt 77.1 kg
[2024-09-12] MEDS: ONDANSETRON 4MG ODT PO ONE (04:17)
[2024-09-12] MEDS: SODIUM CHLORIDE 0.9% 1,000 ML IV ONE ×2 (04:32→06:58)
[2024-09-12 04:34] LABS: BASOPHILS % 0.3 % (0.0-2.0); EOSINOPHILS % 0.6 % (0.0-5.0); HEMATOCRIT. 45.2 % (42.0-52.0); HEMOGLOBIN. 15.2 g/dL (14.0-18.0); LYMPHOCYTES % 17.7 % (20.0-50.0); MEAN CORPUSCULAR HEMOGLOBIN 32.7 pg (28.0-32.0); MEAN CORPUSCULAR HGB CONC 33.5 g/dL (31.0-37.0); MEAN CORPUSCULAR VOLUME 97.5 fL (80.0-94.0); MEAN PLATELET VOLUME 8.2 fl (7.4-10.4); MONOCYTES % 13.5 % (2.0-8.0); NEUTROPHILS % 67.9 % (40.0-76.0); PLATELET 236 x1000/uL (130-400); RED BLOOD CELL COUNT 4.64 mill/uL (4.7-6.1); RED CELL DISTRIBUTION WIDTH 13.9 % (11.6-14.6); WHITE BLOOD COUNT 6.4 x1000/uL (4.5-11.0)
[2024-09-12 04:55] LABS: CALCIUM 9.5 mg/dL (8.7-10.4); CHLORIDE 100 mEq/L (98-107); POTASSIUM 3.9 mEq/L (3.5-5.1); SODIUM 141 mEq/L (136-145)
[2024-09-12 04:56] LABS: CARBON DIOXIDE 28 mEq/L (21-32)
[2024-09-12 05:01] LABS: CREATININE 0.8 mg/dL (0.6-1.3); GLUCOSE 94 mg/dL (70-105); UREA NITROGEN BLOOD 8 mg/dL (9-23)
[2024-09-12 05:02] LABS: ETHANOL BLOOD 104 mg/dL (<10)
[2024-09-12 05:17] LABS: GLUCOSE URINE NEGATIVE (NEGATIVE); KETONES URINE TRACE (NEGATIVE)
[2024-09-12] MEDS: KETOROLAC 15MG/ML VIAL IM ONE (05:19)
[2024-09-12 05:28] LABS: CLARITY URINE CLEAR (CLEAR); COLOR URINE YELLOW (YELLOW); PH URINE 7.5 (4.5-8.0); SPECIFIC GRAVITY URINE 1.014 (1.005-1.030)
[2024-09-12 05:29] LABS: LEUKOCYTE ESTERASE URINE NEGATIVE (NEGATIVE); NITRITE URINE NEGATIVE (NEGATIVE); OCCULT BLOOD URINE NEGATIVE (NEGATIVE); PROTEIN URINE 1+ (NEGATIVE)
[2024-09-12 05:53] LABS: SQUAMOUS EPITHELIAL CELL URINE FEW /lpf (RARE/1+); WBC URINE 0-2 /hpf (0-2)
[2024-09-12 05:54] LABS: AMORPHOUS SEDIMENT URINE 1+ /lpf; BACTERIA URINE NONE SEEN; RBC URINE 0-2 /hpf (0-2)
[2024-09-12 06:16] LABS: TROPONIN I HIGH SENSITIVITY < 4 ng/L (3.0-53)
[2024-09-12] MEDS: PANTOPRAZOLE SODIUM 40 MG/VIAL IV ONE ×2 (07:04→08:06)
[2024-09-12] MEDS: ONDANSETRON HCL 4MG/2ML INJ IV STA (07:04)
[2024-09-12] MEDS ORDERED: PANTOPRAZOLE 80 MG in SODIUM CHLORIDE 0.9% 100 ML IV SCH (07:30)
[2024-09-12 07:47] LABS: ALANINE AMINOTRANSFERASE 24 IU/L (10-49); ALBUMIN 4.4 g/dL (3.2-4.8); ASPARTATE AMINOTRANSFERASE 48 IU/L (<34); BILIRUBIN DIRECT < 0.1 mg/dL (<=3.0)
[2024-09-12 07:48] LABS: BILIRUBIN TOTAL 0.4 mg/dL (0.1-1.0); PROTEIN TOTAL 7.6 g/dL (6.0-8.3)
[2024-09-12] MEDS: METOCLOPRAMIDE HCL 10MG/2ML VIAL IV ONE (08:06)
[2024-09-12] MEDS: DIAZEPAM 5 MG/ML 2ML SYR IV ONE (08:13)
[2024-09-12] MEDS ORDERED: DOCUSATE SODIUM 100MG CAPSULE PO PRN (10:15)
[2024-09-12] MEDS ORDERED: GUAIFENESIN 200MG/10ML SUGAR FREE UDC PO PRN (10:15)
[2024-09-12] MEDS ORDERED: IPRATROPIUM/ALBUTEROL 0.5-3(2.5)MG/3ML NEB HHN PRN (10:15)
[2024-09-12] MEDS ORDERED: CLONIDINE 0.1MG TABLET PO PRN (10:15)
[2024-09-12] MEDS ORDERED: NA PHOS,M-B/NA PHOS,DI-BA ENEMA 118ML PR PRN (10:15)
[2024-09-12] MEDS ORDERED: MAGNESIUM/ALUMINUM HYDROXIDE/SIMETHICONE 30ML UDC PO PRN (10:15)
[2024-09-12] MEDS ORDERED: ONDANSETRON HCL 4MG/2ML INJ IV PRN (10:15)
[2024-09-12] MEDS ORDERED: DIAZEPAM 5 MG/ML 2ML SYR IV NR (10:46)
[2024-09-12 10:52] LABS: *AMPHETAMINES SCREEN URINE NEGATIVE (NEGATIVE); *BARBITURATES SCREEN URINE NEGATIVE (NEGATIVE); *BENZODIAZEPINES SCREEN URINE NEGATIVE (NEGATIVE); *COCAINE SCREEN URINE NEGATIVE (NEGATIVE); METHADONE URINE SCREEN NEGATIVE (NEGATIVE); OPIATES URINE SCREEN NEGATIVE (NEGATIVE)
[2024-09-12 10:53] LABS: CANNABINOID URINE SCREEN PRESUMPTIVE POSITIVE (NEGATIVE); ECSTASY MDMA SCREEN URINE NEGATIVE (NEGATIVE); PHENCYCLIDINE URINE SCREEN NEGATIVE (NEGATIVE)
[2024-09-12] MEDS ORDERED: GABA-1180 PO (11:09)
[2024-09-12] MEDS ORDERED: MIRT-89 PO (11:09)
[2024-09-12 11:14] LABS: TRIGLYCERIDE 87 mg/dL (0-150)
[2024-09-12 11:15] LABS: LDL CHOLESTEROL 96 mg/dL (5-100)
[2024-09-12 11:16] LABS: CHOLESTEROL 219 mg/dL (<200); HDL CHOLESTEROL 114 mg/dL (>55)
[2024-09-12 11:18] LABS: T4 FREE 1.44 ng/dL (0.89-1.76)
[2024-09-12 11:19] LABS: THYROID STIMULATING HORMONE 2.16 uIU/mL (0.55-4.78)
[2024-09-12] MEDS: LORAZEPAM 2MG/ML UD SYRINGE IV PRN (11:47)
[2024-09-12 12:08] LABS: TOTAL IRON BINDING CAPACITY 194 ug/dl (250-425)
[2024-09-12 12:09] LABS: IRON 97 ug/dL (65-175)
[2024-09-12] MEDS: MVI, ADULT NO.1 10 ML, FOLIC ACID 1 MG, THIAMINE HCL 100 MG in SODIUM CHLORIDE 0.9% 1,0... IV NR (12:20)
[2024-09-12] MEDS: PANTOPRAZOLE 80 MG in SODIUM CHLORIDE 0.9% 100 ML IV SCH (12:21)
[2024-09-12] MEDS ORDERED: DIAZEPAM 5 MG/ML 2ML SYR IV PRN (13:00)
[2024-09-12] MEDS ORDERED: DEXTROSE 50% WATER 50ML SYRINGE IV PRN (13:15)
[2024-09-12] MEDS ORDERED: LORAZEPAM 2MG/ML UD SYRINGE IV PRN (13:15)
[2024-09-12] MEDS: BLOOD SUGAR DIAGNOSTIC STRIP TEST SCH (13:42)
[2024-09-12 13:59] LABS: FERRITIN 44 ng/mL (22-322)
[2024-09-12 14:01] LABS: FOLIC ACID (FOLATE) SERUM > 20.00 ng/mL (>5.38); VITAMIN B12 SERUM 1072 pg/mL (211-911)
[2024-09-12] MEDS: MAGNESIUM 2 G PREMIX 50 ML IV NR (15:12)
[2024-09-12 17:20] LABS: CREATINE KINASE 235 IU/L (46-171); TROPONIN I HIGH SENSITIVITY 4 ng/L (3.0-53)
[2024-09-12] MEDS: SUCRALFATE 1G TABLET PO SCH (18:24)
[2024-09-12 20:04] LABS: HEPATITIS B SURFACE ANTIGEN NEGATIVE (Negative)
[2024-09-12 20:25] LABS: HEPATITIS A AB IGM NEGATIVE (Negative); HEPATITIS B CORE AB IGM NEGATIVE (Negative)
[2024-09-12 20:26] LABS: HEPATITIS C AB NON REACTIVE (Neg) (Negative)
[2024-09-12] MEDS: CHLORDIAZEPOXIDE 25MG CAPSULE PO SCH (21:23)
[2024-09-13] VITALS: BP 126/73; PULSE 72; RESP 13; TEMP 36.8; O2SAT 98
[2024-09-13 00:08] LABS: CREATINE KINASE 195 IU/L (46-171)
[2024-09-13 00:25] LABS: TROPONIN I HIGH SENSITIVITY < 4 ng/L (3.0-53)
[2024-09-13] MEDS ORDERED: IOHEXOL-300 100 ML BOTTLE ONE (01:12)
[2024-09-13 02:00] VITALS: BP 115/71; PULSE 68; RESP 12; O2SAT 97
[2024-09-13] MEDS: DEXT 5%/0.9% NACL 1,000 ML IV SCH (02:39)
[2024-09-13 04:00] VITALS: BP 123/86; PULSE 74; RESP 20; TEMP 36.4; O2SAT 97
[2024-09-13 08:05] LABS: HEMATOCRIT. 42.8 % (42.0-52.0); HEMOGLOBIN. 14.2 g/dL (14.0-18.0); MEAN CORPUSCULAR HEMOGLOBIN 32.6 pg (28.0-32.0); MEAN CORPUSCULAR VOLUME 98.5 fL (80.0-94.0); PLATELET 186 x1000/uL (130-400); RED BLOOD CELL COUNT 4.35 mill/uL (4.7-6.1); RED CELL DISTRIBUTION WIDTH 13.9 % (11.6-14.6); WHITE BLOOD COUNT 4.7 x1000/uL (4.5-11.0)
[2024-09-13 08:09] LABS: DIFFERENTIAL COMMENT 1
[2024-09-13 08:40] LABS: CARBON DIOXIDE 27 mEq/L (21-32); CHLORIDE 103 mEq/L (98-107); POTASSIUM 3.5 mEq/L (3.5-5.1); SODIUM 139 mEq/L (136-145)
[2024-09-13 08:41] LABS: CALCIUM 9.2 mg/dL (8.7-10.4)
[2024-09-13 08:45] LABS: CREATININE 0.6 mg/dL (0.6-1.3)
[2024-09-13 08:46] LABS: GLUCOSE 75 mg/dL (70-105); UREA NITROGEN BLOOD < 5 mg/dL (9-23)
[2024-09-13] MEDS ORDERED: PANTOPRAZOLE SODIUM 40 MG/VIAL IV SCH (09:00)
[2024-09-13 14:06] LABS: PLATELET ESTIMATE NORMAL
== END 2024-09-13 07:15 | disposition left against medical advice (07) | DRG 241 ==
LOC: ER 03:30 → 5EST 08:12
PROVIDERS: ADMIT Internal Medicine; ATTEND Internal Medicine
DX: K29.21 Alcoholic gastritis with bleeding (principal); E11.9 Type 2 diabetes mellitus without complications; E78.5 Hyperlipidemia, unspecified; E83.42 Hypomagnesemia; F17.210 Nicotine dependence, cigarettes, uncomplicated; R74.01 Elevation of levels of liver transaminase levels; R94.31 Abnormal electrocardiogram [ECG] [EKG]; F10.239 Alcohol dependence with withdrawal, unspecified; Y90.9 Presence of alcohol in blood, level not specified; Z53.21 Procedure and treatment not carried out due to patient leaving prior to being seen by health care provider; Z91.199 Patient's noncompliance with other medical treatment and regimen due to unspecified reason
CPT/HCPCS: 36415; 71045; 74177; 76700; 80048; 80061; 80076; 80305; 80320; 81003; 82550; 82607; 82728; 82746; 82962; 83540; 83550; 83735; 84100; 84439; 84443; 84484; 85025; 85044; 86705; 86709; 87340; 93005; 94070; 94760; 99291; J1885; J2060; J2405; J2470; J2765; J3411; J3475; J3490; J7030; J7050; Q0162; Q9967; G0480

== ENCOUNTER 2024-12-24 10:14 | Emergency (ER) | payer MEDICAID ==
[~2024-12-24 10:14] MED LIST changes: -BO1 TP; -FAMO-135 MT; +GABA-1180 PO; -IBUP-2028 MT; -LIDO1ADH62 TP; -LIDO700A15 TP; +MIRT-89 PO; -OMEP20CA14 MT; -ONDA4TAB50 MT; -ONDA4TAB50 PO; -TOPUD PO
[2024-12-24 10:21] VITALS: PULSE 84; RESP 18; O2SAT 98
== END 2024-12-24 11:07 | disposition left against medical advice (07) ==
LOC: ER 10:14
DX: F41.9 Anxiety disorder, unspecified (principal); Z53.21 Procedure and treatment not carried out due to patient leaving prior to being seen by health care provider

== ENCOUNTER 2024-12-25 03:23 | Inpatient (IN) | payer MEDICAID, OTHER ==
[~2024-12-25] VITALS: Ht 172.7 cm; Wt 73.2 kg
[2024-12-25 03:46] VITALS: O2SAT 98
[2024-12-25 04:33] LABS: BASOPHILS % 1.1 % (0.0-2.0); EOSINOPHILS % 2.7 % (0.0-5.0); HEMATOCRIT. 40.5 % (42.0-52.0); HEMOGLOBIN. 13.5 g/dL (14.0-18.0); LYMPHOCYTES % 23.9 % (20.0-50.0); MEAN PLATELET VOLUME 9.5 fl (7.4-10.4); MONOCYTES % 11.0 % (2.0-8.0); NEUTROPHILS % 61.3 % (40.0-76.0); PLATELET 164 x1000/uL (130-400); RED BLOOD CELL COUNT 4.37 mill/uL (4.7-6.1); RED CELL DISTRIBUTION WIDTH 14.5 % (11.6-14.6)
[2024-12-25 04:45] LABS: CREATININE 0.7 mg/dL (0.6-1.3); UREA NITROGEN BLOOD 11 mg/dL (9-23)
[2024-12-25 04:46] LABS: TROPONIN I HIGH SENSITIVITY < 4 ng/L (3.0-53)
[2024-12-25] MEDS: LORAZEPAM 0.5MG TABLET PO ONE (05:52)
[2024-12-25] MEDS: FAMOTIDINE 20MG/2ML VIAL IV ONE (07:00)
[2024-12-25] MEDS: SODIUM CHLORIDE 0.9% 1,000 ML IV ONE (07:00)
[2024-12-25] MEDS: ONDANSETRON HCL 4MG/2ML INJ IV ONE (07:00)
[2024-12-25] MEDS: LORAZEPAM 2MG/ML UD SYRINGE IV SCH (07:11)
[2024-12-25 09:30] VITALS: BP 127/78; PULSE 76; RESP 15; TEMP 36.5848; TEMP 36.6; O2SAT 96
[2024-12-25] MEDS ORDERED: LORAZEPAM 2MG/ML UD SYRINGE IV PRN (11:30)
[2024-12-25] MEDS ORDERED: ACETAMINOPHEN 325MG TABLET PO PRN ×2 (11:30)
[2024-12-25] MEDS ORDERED: IPRATROPIUM/ALBUTEROL 0.5-3(2.5)MG/3ML NEB HHN PRN (11:30)
[2024-12-25] MEDS ORDERED: CLONIDINE 0.1MG TABLET PO PRN (11:30)
[2024-12-25] MEDS ORDERED: ONDANSETRON HCL 4MG/2ML INJ IV PRN (11:30)
[2024-12-25] MEDS ORDERED: DOCUSATE SODIUM 100MG CAPSULE PO PRN (11:30)
[2024-12-25 12:00] VITALS: BP 114/75; PULSE 73; RESP 19; TEMP 36.5; O2SAT 100
[2024-12-25] MEDS: PANTOPRAZOLE SODIUM 40 MG/VIAL IV SCH (12:42)
[2024-12-25] MEDS: FOLIC ACID 1 MG, THIAMINE HCL 100 MG, MVI, ADULT NO.1 10 ML in DEXTROSE 5% WATER 1,000 ML IV NR (14:07)
[2024-12-25] MEDS: CHLORDIAZEPOXIDE 25MG CAPSULE PO SCH (14:07)
[2024-12-25 16:00] VITALS: BP 139/70; PULSE 90; RESP 17; TEMP 36.1; O2SAT 96
[2024-12-25 20:00] VITALS: BP 123/75; PULSE 61; RESP 18; TEMP 36.3; O2SAT 97
[2024-12-25 22:27] LABS: CREATINE KINASE MB FRACTION 1.0 ng/mL (0.5-3.6); TROPONIN I HIGH SENSITIVITY < 4 ng/L (3.0-53)
[2024-12-26] VITALS: BP 121/85; PULSE 60; RESP 18; TEMP 36.5; O2SAT 98
[2024-12-26 04:00] VITALS: BP 120/78; PULSE 67; RESP 18; TEMP 36.6; O2SAT 99
[2024-12-26 06:52] LABS: CLARITY URINE CLEAR (CLEAR); COLOR URINE YELLOW (YELLOW); GLUCOSE URINE NEGATIVE (NEGATIVE); KETONES URINE NEGATIVE (NEGATIVE); LEUKOCYTE ESTERASE URINE TRACE (NEGATIVE); NITRITE URINE NEGATIVE (NEGATIVE); OCCULT BLOOD URINE NEGATIVE (NEGATIVE); PH URINE 6.5 (4.5-8.0); PROTEIN URINE NEGATIVE (NEGATIVE); SPECIFIC GRAVITY URINE 1.005 (1.005-1.030); UROBILINOGEN URINE 0.2 E.U./dL (0.2-1.0)
[2024-12-26 07:12] LABS: *AMPHETAMINES SCREEN URINE NEGATIVE (NEGATIVE); *BARBITURATES SCREEN URINE NEGATIVE (NEGATIVE); *BENZODIAZEPINES SCREEN URINE NEGATIVE (NEGATIVE); *COCAINE SCREEN URINE NEGATIVE (NEGATIVE); BACTERIA URINE NONE SEEN; CANNABINOID URINE SCREEN PRESUMPTIVE POSITIVE (NEGATIVE); ECSTASY MDMA SCREEN URINE NEGATIVE (NEGATIVE); METHADONE URINE SCREEN NEGATIVE (NEGATIVE); OPIATES URINE SCREEN NEGATIVE (NEGATIVE); PHENCYCLIDINE URINE SCREEN NEGATIVE (NEGATIVE); RBC URINE 0-2 /hpf (0-2); SQUAMOUS EPITHELIAL CELL URINE NONE SEEN /lpf (RARE/1+); WBC URINE 0-2 /hpf (0-2)
[2024-12-26 08:00] VITALS: BP 107/62; PULSE 68; RESP 17; TEMP 36.2; O2SAT 97
[2024-12-26] MEDS: MULTIVITAMINS,THER W-MINERALS TABLET PO SCH (08:40)
[2024-12-26] MEDS: THIAMINE HCL 100MG TABLET PO SCH (08:40)
[2024-12-26] MEDS: FOLIC ACID 1MG TABLET PO SCH (08:40)
== END 2024-12-26 09:40 | disposition left against medical advice (07) | DRG 426 ==
LOC: ER 03:23 → 6WST 07:51 → EDBEDREQ 07:55 → EDBEDREQTM 07:55 → ENRESERV 08:30
PROVIDERS: ADMIT Internal Medicine; ATTEND Internal Medicine
DX: E87.0 Hyperosmolality and hypernatremia (principal); F10.131 Alcohol abuse with withdrawal delirium; R07.89 Other chest pain; D64.9 Anemia, unspecified; Y90.9 Presence of alcohol in blood, level not specified; F41.0 Panic disorder [episodic paroxysmal anxiety]; Z53.29 Procedure and treatment not carried out because of patient's decision for other reasons; Z95.1 Presence of aortocoronary bypass graft
CPT/HCPCS: 36415; 71045; 80048; 80305; 80307; 80320; 80329; 81003; 82140; 82550; 82553; 83880; 84484; 85025; 93005; 93970; 99285; J1308; J2060; J2405; J2470; J3411; J3490; J7030; J7070; G0480

== ENCOUNTER 2025-02-22 13:09 | Emergency (ER) | payer MEDICAID ==
[~2025-02-22] VITALS: Ht 172.7 cm; Wt 70.0 kg
[2025-02-22 13:12] VITALS: BP 127/88; PULSE 86; RESP 18; TEMP 37.1; O2SAT 98
[2025-02-22] MEDS: ACETAMINOPHEN 325MG TABLET PO ONE (15:28)
== END 2025-02-22 16:08 | disposition home or self-care (01) ==
LOC: ER 13:09
DX: R51.9 Headache, unspecified (principal); F12.90 Cannabis use, unspecified, uncomplicated; Z95.1 Presence of aortocoronary bypass graft; Z79.899 Other long term (current) drug therapy; Y04.0XXA Assault by unarmed brawl or fight, initial encounter; Y93.89 Activity, other specified; Y92.89 Other specified places as the place of occurrence of the external cause; Y99.8 Other external cause status
CPT/HCPCS: 70486; 99284

== ENCOUNTER 2025-03-10 23:43 | Inpatient (IN) | payer MEDICAID ==
[~2025-03-10] VITALS: Ht 172.7 cm; Wt 75.7 kg
[2025-03-11 00:07] VITALS: O2SAT 99
[2025-03-11] MEDS ORDERED: KEPP500 PO (00:14)
[2025-03-11] MEDS: ONDANSETRON 4MG ODT PO ONE (00:52)
[2025-03-11 01:03] LABS: BASOPHILS % 0.8 % (0.0-2.0); EOSINOPHILS % 1.2 % (0.0-5.0); HEMATOCRIT. 44.8 % (42.0-52.0); HEMOGLOBIN. 14.9 g/dL (14.0-18.0); LYMPHOCYTES % 15.1 % (20.0-50.0); MEAN PLATELET VOLUME 8.8 fl (7.4-10.4); MONOCYTES % 5.8 % (2.0-8.0); NEUTROPHILS % 77.1 % (40.0-76.0); PLATELET 246 x1000/uL (130-400); RED BLOOD CELL COUNT 4.99 mill/uL (4.7-6.1); RED CELL DISTRIBUTION WIDTH 16.5 % (11.6-14.6)
[2025-03-11 01:17] LABS: CREATININE 0.8 mg/dL (0.6-1.3)
[2025-03-11 01:18] LABS: UREA NITROGEN BLOOD 5 mg/dL (9-23)
[2025-03-11] MEDS: LORAZEPAM 0.5MG TABLET PO ONE (02:41)
[2025-03-11 03:25] LABS: INR 1.0
[2025-03-11 03:30] LABS: ASPARTATE AMINOTRANSFERASE 32 IU/L (<34); BILIRUBIN DIRECT 0.1 mg/dL (<=3.0); BILIRUBIN TOTAL 0.4 mg/dL (0.1-1.0); PROTEIN TOTAL 6.6 g/dL (6.0-8.3)
[2025-03-11 07:51] LABS: CLARITY URINE CLEAR (CLEAR); COLOR URINE DARK YELLOW (YELLOW); GLUCOSE URINE NEGATIVE (NEGATIVE); KETONES URINE 1+ (NEGATIVE); LEUKOCYTE ESTERASE URINE NEGATIVE (NEGATIVE); NITRITE URINE NEGATIVE (NEGATIVE); OCCULT BLOOD URINE NEGATIVE (NEGATIVE); PH URINE 5.5 (4.5-8.0); PROTEIN URINE TRACE (NEGATIVE); SPECIFIC GRAVITY URINE 1.020 (1.005-1.030); UROBILINOGEN URINE 1.0 E.U./dL (0.2-1.0)
[2025-03-11 08:32] LABS: FINE GRANULAR CASTS URINE 0-5 /lpf; HYALINE CASTS URINE 0-5 /lpf
[2025-03-11 08:41] LABS: MUCUS URINE 3+ /lpf (NONE/TRACE); SQUAMOUS EPITHELIAL CELL URINE FEW /lpf (RARE/1+)
[2025-03-11 08:42] LABS: RBC URINE 0-2 /hpf (0-2)
[2025-03-11 08:43] LABS: BACTERIA URINE TRACE
[2025-03-11] MEDS ORDERED: NALOXONE HCL 0.4MG/ML VIAL IV PRN (09:00)
[2025-03-11] MEDS ORDERED: CLONIDINE 0.1MG TABLET PO PRN (09:00)
[2025-03-11] MEDS ORDERED: DIPHENHYDRAMINE 50MG/ML VIAL IV PRN (09:00)
[2025-03-11] MEDS ORDERED: IPRATROPIUM/ALBUTEROL 0.5-3(2.5)MG/3ML NEB HHN PRN (09:00)
[2025-03-11] MEDS ORDERED: MORPHINE SULFATE 2 MG/ML INJ (NOT FOR IM USE) IV PRN (09:00)
[2025-03-11] MEDS ORDERED: ONDANSETRON HCL 4MG/2ML INJ IV PRN (09:00)
[2025-03-11 12:00] VITALS: BP 107/77; PULSE 86; RESP 18; TEMP 36.5; O2SAT 98
[2025-03-11] MEDS: FOLIC ACID 1 MG, THIAMINE HCL 100 MG, MVI, ADULT NO.1 10 ML in DEXTROSE 5% WATER 1,000 ML IV ONE (13:07)
[2025-03-11] MEDS: CHLORDIAZEPOXIDE 25MG CAPSULE PO SCH (13:14)
[2025-03-11 16:00] VITALS: BP 119/84; PULSE 64; RESP 18; TEMP 36.6; O2SAT 98
[2025-03-11] MEDS: MORPHINE SULFATE 10 MG/ML INJ (NOT FOR IM USE) IV PRN (16:40)
[2025-03-11 17:52] VITALS: BP 119/86; PULSE 64; RESP 18; TEMP 36.6404
[2025-03-11 20:00] VITALS: BP 113/67; PULSE 70; RESP 18; TEMP 36.8; O2SAT 99
[2025-03-12] VITALS: BP 115/72; PULSE 78; RESP 17; TEMP 36.4; O2SAT 99
[2025-03-12 04:00] VITALS: BP 125/90; PULSE 83; RESP 18; TEMP 36.6; O2SAT 100
[2025-03-12 07:49] LABS: BASOPHILS % 1.2 % (0.0-2.0); EOSINOPHILS % 1.6 % (0.0-5.0); HEMATOCRIT. 46.0 % (42.0-52.0); HEMOGLOBIN. 15.2 g/dL (14.0-18.0); LYMPHOCYTES % 21.0 % (20.0-50.0); MEAN PLATELET VOLUME 9.1 fl (7.4-10.4); MONOCYTES % 11.3 % (2.0-8.0); NEUTROPHILS % 64.9 % (40.0-76.0); PLATELET 239 x1000/uL (130-400); RED BLOOD CELL COUNT 5.11 mill/uL (4.7-6.1); RED CELL DISTRIBUTION WIDTH 15.8 % (11.6-14.6)
[2025-03-12 08:01] LABS: CREATININE 0.7 mg/dL (0.6-1.3); UREA NITROGEN BLOOD < 5 mg/dL (9-23)
[2025-03-12 08:15] VITALS: BP 111/68; PULSE 80; RESP 18; TEMP 36.2; O2SAT 95
[2025-03-12 12:30] VITALS: BP 115/73; PULSE 79; RESP 18; TEMP 36.3; O2SAT 95
[2025-03-12] MEDS ORDERED: THIA100T72 MT (15:37)
[2025-03-12] MEDS ORDERED: CHLO25CA11 MT (15:37)
[2025-03-12] MEDS ORDERED: FOLI-43 MT (15:37)
[2025-03-12] MEDS ORDERED: MULT-379 MT (15:37)
[2025-03-12 16:21] VITALS: BP 136/92; PULSE 90; RESP 19; TEMP 97.7
== END 2025-03-12 17:20 | disposition home or self-care (01) | DRG 775 ==
LOC: ER 23:48 → 8WST 03-11 04:00 → EDBEDREQTM 03-11 04:03 → EDBEDREQ 03-11 04:03 → ENRESERV 03-11 07:42
PROVIDERS: ADMIT Internal Medicine; ATTEND Internal Medicine
DX: F10.229 Alcohol dependence with intoxication, unspecified (principal); F10.239 Alcohol dependence with withdrawal, unspecified; R10.9 Unspecified abdominal pain; Y90.6 Blood alcohol level of 120-199 mg/100 ml
CPT/HCPCS: 36415; 71045; 76700; 80048; 80076; 80320; 81003; 85025; 86850; 86900; 93005; 99285; A4606; J2270; J3411; J3490; J7070; Q0162; G0480

== ENCOUNTER 2025-05-19 02:22 | Emergency (ER) | payer MEDICAID ==
[~2025-05-19] VITALS: Ht 172.7 cm; Wt 74.0 kg
[~2025-05-19 02:22] MED LIST changes: +CHLO25CA11 MT; +FOLI-43 MT; +KEPP500 PO; +MULT-379 MT; +THIA100T72 MT
[2025-05-19 02:39] VITALS: O2SAT 100
[2025-05-19] MEDS: LORAZEPAM 2MG/ML UD SYRINGE IV NR (04:26)
[2025-05-19] MEDS: ONDANSETRON 4MG ODT PO ONE ×2 (04:26→06:11)
[2025-05-19 04:29] LABS: BASOPHILS % 0.3 % (0.0-2.0); EOSINOPHILS % 0.7 % (0.0-5.0); HEMATOCRIT. 46.4 % (42.0-52.0); HEMOGLOBIN. 15.2 g/dL (14.0-18.0); LYMPHOCYTES % 22.0 % (20.0-50.0); MEAN PLATELET VOLUME 8.6 fl (7.4-10.4); MONOCYTES % 10.5 % (2.0-8.0); NEUTROPHILS % 66.5 % (40.0-76.0); PLATELET 232 x1000/uL (130-400); RED BLOOD CELL COUNT 5.21 mill/uL (4.7-6.1); RED CELL DISTRIBUTION WIDTH 17.1 % (11.6-14.6)
[2025-05-19 04:39] LABS: INR 1.0
[2025-05-19 04:43] VITALS: TEMP 37.2
[2025-05-19 04:50] LABS: CREATININE 0.8 mg/dL (0.6-1.3); ETHANOL BLOOD 71 mg/dL (<10); PROTEIN TOTAL 6.9 g/dL (6.0-8.3); TROPONIN I HIGH SENSITIVITY 14 ng/L (3.0-53); UREA NITROGEN BLOOD 7 mg/dL (9-23)
[2025-05-19 04:52] LABS: ASPARTATE AMINOTRANSFERASE 33 IU/L (<34); BILIRUBIN DIRECT 0.2 mg/dL (<=3.0); BILIRUBIN TOTAL 0.8 mg/dL (0.1-1.0)
[2025-05-19 05:18] LABS: CLARITY URINE CLEAR (CLEAR); COLOR URINE YELLOW (YELLOW); GLUCOSE URINE NEGATIVE (NEGATIVE); KETONES URINE TRACE (NEGATIVE); LEUKOCYTE ESTERASE URINE NEGATIVE (NEGATIVE); NITRITE URINE NEGATIVE (NEGATIVE); OCCULT BLOOD URINE NEGATIVE (NEGATIVE); PH URINE 7.5 (4.5-8.0); PROTEIN URINE TRACE (NEGATIVE); SPECIFIC GRAVITY URINE 1.017 (1.005-1.030); UROBILINOGEN URINE 1.0 E.U./dL (0.2-1.0)
[2025-05-19] MEDS ORDERED: ONDA-239 PO (05:55)
[2025-05-19] MEDS ORDERED: ACET-2708 MT (05:55)
[2025-05-19 06:11] LABS: SQUAMOUS EPITHELIAL CELL URINE FEW /lpf (RARE/1+)
[2025-05-19] MEDS: ACETAMINOPHEN 325MG TABLET PO ONE (06:11)
[2025-05-19 06:12] LABS: BACTERIA URINE NONE SEEN; RBC URINE 0-2 /hpf (0-2); WBC URINE 0-2 /hpf (0-2)
[2025-05-19 06:15] VITALS: BP 121/82; PULSE 83; RESP 18; O2SAT 95
== END 2025-05-19 06:20 | disposition home or self-care (01) ==
LOC: ER 02:22 → CMPBEDREQ 08:02
DX: F10.239 Alcohol dependence with withdrawal, unspecified (principal); K92.0 Hematemesis; R10.13 Epigastric pain; R25.1 Tremor, unspecified; F12.90 Cannabis use, unspecified, uncomplicated; Z79.899 Other long term (current) drug therapy; Y90.3 Blood alcohol level of 60-79 mg/100 ml
CPT/HCPCS: 80076; 80048; 81003; 80320; 83690; 83735; 85025; 85610; 85730; 86850; 86900; 86901; 84484; 36415; 74176; 93005; 96374; 99285; Q0162; J2060; G0480